=== PATIENT | female | born 1955 | race Caucasian/White ===

== ENCOUNTER 2016-08-12 05:46 | Day surgery (SDC) | payer BC ==
[~2016-08-12] VITALS: Ht 149.9 cm; Wt 45.3 kg
[2016-08-12 07:00] VITALS: Ht 149.9 cm; Wt 45.3 kg
[2016-08-12 07:09] VITALS: BP 111/81; PULSE 60; RESP 16
[2016-08-12 08:12] VITALS: BP 106/70; PULSE 66; RESP 20
[2016-08-12] MEDS ORDERED: MIDAZOLAM 1 MG/ML 2 ML INJ ONE (08:56)
[2016-08-12] MEDS ORDERED: FENTAnyl 50 MCG/ML VIAL ONE (08:56)
--- NOTE | 2016-08-12 18:03 | GILP ---
DATE OF PROCEDURE: 08/12/2016 NAME OF PROCEDURE: Esophagogastroduodenoscopy and biopsy. SURGEON: Denise Sears MD PREOPERATIVE DIAGNOSIS: Abdominal pain. POSTOPERATIVE DIAGNOSES: 1. Gastritis. 2. Gastric mucosal biopsies were taken for Helicobacter pylori test. INDICATION FOR THE PROCEDURE: Ms. Nury Jacobsen is a 61-year-old female patient who had upper abdominal pain, not responding to therapy. The patient was scheduled for endoscopic examination fo r further evaluation. The procedure and possible complications were well explained to the patient. The patient understood and consented to the procedure. DESCRIPTION OF PROCEDURE: Under the influence of fentanyl and Versed, the gastroscope was carefully introduced into the esophagus. Under direct vision, it was advanced to the stomach and through the pylorus into the duodenal bulb and descending duodenum. FINDINGS: ESOPHAGUS: The mucosa was normal. STOMACH: The patient had gastritis. Gastric mucosal biopsies were taken for H. pylori test. DUODENUM: Normal. She tolerated the procedure very well and there was no complication from the procedure. At the end of the procedure, she was awake with stable vital signs and she was discharged home to the care of h family. IMPRESSION: 1. Gastritis. 2. Gastric mucosal biopsies were taken for Helicobacter pylori test. PLAN: 1. Nexium 24 hours p.o. q.a.m. 2. Await H. pylori test report. Dictated By: DENISE MAYEN/KATHERINE Conf#: [id number] DID#: [id number]
== END 2016-08-12 12:08 | disposition home or self-care (01) ==
LOC: GIL 05:46
PROVIDERS: ATTEND Internal Medicine Gastroenterology
DX: K29.70 Gastritis, unspecified, without bleeding (principal); B96.81 Helicobacter pylori [H. pylori] as the cause of diseases classified elsewhere
CPT/HCPCS: 43239; 87081; J2250; J3010